=== PATIENT | female | born 2000 | race Hispanic/Latino ===

== ENCOUNTER 2018-09-29 14:09 | Emergency (ER) | payer OTHER ==
--- NOTE | 2018-09-29 14:38 | ED.PDOC ---
History of Present Illness - General Chief Complaint: Trauma Stated Complaint: right knee pain Time Seen by Provider: 09/29/18 14:35 Source: patient, Vital Signs reviewed Exam Limitations: no limitations Additional Information: 18 YEAR OLD PRESENTS WITH PAIN IN THE RIGHT KNEE AFTER STEPPING FROM A HEIGHT NO FALL SHE HAS HISTORY OF RIGHT KNEE INJURY PLAYING SOCCER AND HAD BEEN OPERATED TO REPAIR ANTERIOR CRUCIATE LIGAMENTAL INJURY IN [place] WHERE SHE IS FROM SHE NOW HAS PAIN ON WEIGHT BEARING ON THE RIGHT KNEE - History of Present Illness Timing/Duration: 24 hours Severity: moderate Improving Factors: immobilization Worsening Factors: nothing, movement Allergies/Adverse Reactions: Allergies NO KNOWN ALLERGY Allergy (Verified 09/29/18 14:19) Home Medications: Ambulatory Orders NK 09/29/18 Review of Systems - Review of Systems Constitutional: States: no symptoms reported EENTM: States: no symptoms reported Respiratory: States: no symptoms reported Cardiology: States: no symptoms reported Gastrointestinal/Abdominal: States: no symptoms reported Genitourinary: States: no symptoms reported Musculoskeletal: States: see HPI Skin: States: no symptoms reported Neurological: States: no symptoms reported Endocrine: States: no symptoms reported Hematologic/Lymphatic: States: no symptoms reported Past Medical History (General) - Patient Medical History Hx Cardiac Disorders: No Hx Hypertension: No Hx Gastroesophageal Reflux: No Surgical History: other - Vaccination History Hx Tetanus, Diphtheria Vaccination: Yes - Social History Hx Tobacco Use: No Family Medical History - Family History Mother Family History: No Known Physical Exam - Physical Exam General Appearance: Alert, Comfortable Eye Exam: bilateral normal Ears, Nose, Throat: hearing grossly normal, normal ENT inspection Neck: non-tender, full range of motion, supple Respiratory: chest non-tender, lungs clear, normal breath sounds, no respiratory distress, no accessory muscle use Cardiovascular/Chest: normal peripheral pulses, regular rate, rhythm, no edema, no gallop, no JVD Peripheral Pulses: radial,right: 2+, radial,left: 2+, femoral,right: 2+, femoral,left: 2+, popliteal,right: 2+, popliteal,left: 2+ Gastrointestinal/Abdominal: normal bowel sounds, non tender, soft, no organomegaly Back Exam: normal inspection, no CVA tenderness, no vertebral tenderness Extremity: other - RIGHT KNEE THERE IS MILD MUSCLE WASTING OF THE HAMSTRING FLEXION AND EXTENSION FULL RANGE NO EFFUSION NO FEFORMITY NO NEURO VASCULAR DEFICIT NOTED Departure - Departure Clinical Impression: Injury of ligament, Sprain Time of Disposition: 15:07 Disposition: Discharge to Home or Self Care Condition: Good Departure Forms: ED Discharge - Pt. Copy, Patient Portal Self Enrollment Instructions: DI for Trauma Diet: resume usual diet Home Medications: Ambulatory Orders NK 09/29/18 Additional Instructions: RECOMMEND KNEE IMMOBILIZER AND FOLLOW UP WITH YOUR ORTHOPEDIC PHYSICIAN
--- NOTE | 2018-09-29 15:00 | RAD ---
EXAM DESCRIPTION: Knee,Right Complete CLINICAL HISTORY: 18 years, Female, PAIN COMPARISON: None TECHNIQUE: Three views of the right knee FINDINGS: No fracture or dislocation. Bones appear normally mineralized with normal trabecular pattern. Normal appearance of medial and lateral compartments on frontal view. Lateral view shows normal position of the patella. No patellar spurring or enthesopathy. No suprapatellar knee joint effusion. Normal contour of quadriceps and patellar tendons. No abnormal patellar tilt or subluxation on patellar sunrise view. IMPRESSION: Negative for fracture or dislocation. Electronically signed by: Connor Mcfadden MD 09/29/2018 2:58 PM CDT
[2018-09-29 16:05] VITALS: BP 125/85; O2SAT 99
[2018-09-29 16:06] VITALS: TEMP 98.4
== END 2018-09-29 16:00 | disposition home or self-care (01) ==
LOC: ER 14:09
DX: S83.91XA Sprain of unspecified site of right knee, initial encounter (principal); Z87.828 Personal history of other (healed) physical injury and trauma; Z98.890 Other specified postprocedural states; X50.9XXA Other and unspecified overexertion or strenuous movements or postures, initial encounter; Y92.9 Unspecified place or not applicable

== ENCOUNTER 2018-10-02 20:09 | Emergency (ER) | payer OTHER ==
[2018-10-02 20:30] VITALS: BP 118/73; TEMP 98.9; O2SAT 98
--- NOTE | 2018-10-02 20:51 | ED.PDOC ---
History of Present Illness - General Chief Complaint: General Stated Complaint: needs heparin and dr note per insurance Time Seen by Provider: 10/02/18 20:26 Source: patient Exam Limitations: no limitations - History of Present Illness Initial Comments: PT SUSTAINED INJURY TO R KNEE 09/29/18. WAS SEEN HERE AND EVALUATED, PLACED IN IMMOBILIZER. PT IS FROM [facility] AND IS DUE TO GO BACK IN 2 DAYS. IS ASKING FOR NOTE STATING SHE NEEDS TO KEEP HER LEG EXTENDED DURING THE FLIGHT. STILL C/O SIGNIFICANT PAIN WITH PROLONGED FLEXION. Timing/Duration: unsure Severity: moderate Improving Factors: immobilization Worsening Factors: movement Allergies/Adverse Reactions: Allergies NO KNOWN ALLERGY Allergy (Verified 09/29/18 14:19) Home Medications: Ambulatory Orders NK 09/29/18 Review of Systems - Review of Systems Constitutional: Denies: chills, fever Musculoskeletal: States: joint pain, joint swelling Skin: States: no symptoms reported Neurological: Denies: numbness, weakness Hematologic/Lymphatic: Denies: blood clots Past Medical History (General) - Patient Medical History Hx Seizures: No Hx Stroke: No Hx Dementia: No Hx Asthma: No Hx of COPD: No Hx Cardiac Disorders: No Hx Congestive Heart Failure: No Hx Pacemaker: No Hx Hypertension: No Hx Thyroid Disease: No Hx Diabetes: No Hx Gastroesophageal Reflux: No Hx Renal Disease: No Hx Cancer: No Hx of HIV: No Hx Hepatitis C: No Hx MRSA: No Surgical History: no surgical history - Vaccination History Hx Tetanus, Diphtheria Vaccination: Yes Hx Influenza Vaccination: No Hx Pneumococcal Vaccination: No Immunizations Up to Date: Yes - Social History Hx Tobacco Use: No Hx Chewing Tobacco Use: No Hx Alcohol Use: No Hx Substance Use: No Hx Substance Use Treatment: No Hx Depression: No Feels Threatened In Home Enviroment: No Feels Threatened In a Relationship: No Hx Physical Abuse: No Hx Emotional Abuse: No Hx Suspected Abuse: No - Activities of Daily Living Hospice Agency (if applicable):: None - Female History Patient is a Female of Child Bearing Age (10 -59 yrs old): Yes Patient : No - Triage Comment ED Triage Comment: pt did not arrive to ER for any problems related to recent knee injury Family Medical History - Family History Mother Family History: No Known Physical Exam - Physical Exam General Appearance: Alert, No apparent distress Eye Exam: bilateral normal Extremity: other - DECREASED ROM, SMALL EFFUSION, NO CLICK, MILD LATERAL COLLATERAL LIGAMENT INSTABILITY, NEG ANT/POST DRAWER Neurologic: no motor/sensory deficits, oriented x 3 Skin Exam: normal color, warm/dry, other - NO ECCHYMOSIS Departure - Departure Clinical Impression: Lateral collateral ligament sprain of knee Qualifiers: Encounter type: subsequent encounter Laterality: right Qualified Code(s): S83.421D - Sprain of lateral collateral ligament of right knee, subsequent encounter Effusion of knee joint Qualifiers: Laterality: right Qualified Code(s): M25.461 - Effusion, right knee Time of Disposition: 20:57 Disposition: Discharge to Home or Self Care Condition: Good Departure Forms: ED Discharge - Pt. Copy, Patient Portal Self Enrollment Instructions: Ligament Injuries in the Knee (DC) Home Medications: Ambulatory Orders NK 09/29/18 Additional Instructions: WEAR KNEE IMMOBILIZER DURING FLIGHT. AMBULATE EVERY 2-3 HOURS.
== END 2018-10-02 21:09 | disposition home or self-care (01) ==
LOC: ER 20:09
DX: S83.421D Sprain of lateral collateral ligament of right knee, subsequent encounter (principal); X58.XXXD Exposure to other specified factors, subsequent encounter; Y92.9 Unspecified place or not applicable